=== PATIENT | male | born 1995 | race Caucasian/White ===

== ENCOUNTER 2023-03-19 10:20 | Emergency (ER) | payer MEDICAID, OTHER ==
[~2023-03-19] VITALS: Ht 172.7 cm; Wt 174.2 kg
[2023-03-19] MEDS ORDERED: METOPROLOL (10:30)
[2023-03-19] MEDS ORDERED: hydrALAZINE HCL 20 MG/1 ML VIAL IV ONE (10:30)
[2023-03-19] MEDS ORDERED: ASPIRIN 81 MG TAB.CHEW PO ONE (10:30)
[2023-03-19] MEDS ORDERED: OMEPRAZOLE (10:30)
[2023-03-19] MEDS ORDERED: hydrALAZINE HCL 20 MG/1 ML VIAL ONE (10:40)
[2023-03-19] MEDS ORDERED: ASPIRIN 81 MG TAB.CHEW ONE (10:40)
[2023-03-19 10:44] LABS: BASOPHILS % (AUTO) 0.4 % (0.0-2.0); EOSINOPHILS # (AUTO) 0.1 K/uL (0.0-0.7); HEMATOCRIT 37.2 % (36.7-47.1); HEMOGLOBIN 12.3 g/dL (12.5-16.3); LYMPHOCYTES # (AUTO) 1.9 K/uL (0.8-4.8); LYMPHOCYTES % (AUTO) 18.9 % (20.5-51.5); MEAN CORPUSCULAR HEMOGLOBIN 27.2 uug (23.8-33.4); MEAN CORPUSCULAR HGB CONC 33 g/dL (32.5-36.3); MEAN CORPUSCULAR VOLUME 82.2 fL (73.0-96.2); MONOCYTES # (AUTO) 0.7 K/uL (0.1-1.30); MONOCYTES % (AUTO) 6.8 % (0.0-11.0); NEUTROPHILS # (AUTO) 7.2 K/uL (1.8-8.9); NEUTROPHILS % (AUTO) 72.9 % (38.5-71.5); PLATELET COUNT (AUTO) 190 K/uL (152-348); RED BLOOD CELL COUNT(AUTO) 4.52 MIL/uL (4.06-5.63); RED CELL DISTRIBUTION WIDTH 14.5 % (12.1-16.2)
[2023-03-19 10:58] LABS: CALCIUM 9.5 mg/dL (8.5-10.1); CARBON DIOXIDE 30 mmol/L (21-32); CHLORIDE 102 mmol/L (98-107); CREATININE 0.8 mg/dL (0.6-1.3); GLUCOSE 218 mg/dL (74-106); POTASSIUM 4.2 mmol/L (3.5-5.1); SODIUM SERUM 140 mmol/L (136-145); UREA NITROGEN, BLOOD 11 mg/dL (7-18)
[2023-03-19 11:04] LABS: DIFFERENTIAL COMMENT 1
[2023-03-19] MEDS ORDERED: hydrALAZINE HCL 25 MG TABLET PO ONE (13:15)
[2023-03-19 13:40] VITALS: BP 153/91; TEMP 98.4; O2SAT 97
== END 2023-03-19 15:31 | disposition home or self-care (01) ==
LOC: ER 10:20
DX: I10 Essential (primary) hypertension (principal); R07.89 Other chest pain; R73.9 Hyperglycemia, unspecified; K21.9 Gastro-esophageal reflux disease without esophagitis; Z79.899 Other long term (current) drug therapy; Z88.1 Allergy status to other antibiotic agents
CPT/HCPCS: 99285; 96374; 71045; 80048; 85025; 84484 ×2; 36415; 93005; J0360; A4606; A4663